=== PATIENT | male | born 1965 | race Caucasian/White ===

== ENCOUNTER 2020-04-21 11:11 | Day surgery (SDC) | payer SELFPAY ==
--- NOTE | ~2020-04-21 | XR_ITS ---
EXAMINATION: XR barium swallow DATE: 04/21/2020 11:56 INDICATION: Dysphagia. TECHNIQUE: The patient drank thick barium. Fluoroscopy of the esophagus was performed. Fluoroscopy ex posure time was 0.2 minutes. The total number of images was 4. The dose-area product was 1.326 Gy-cm^2 . COMPARISON: None. FINDINGS: There is total occlusion of the distal esophagus. No fluid could pass this area in the upri ght position. IMPRESSION: 1. Total occlusion of the distal esophagus, which may be food impaction given that the patient ate no rmal food yesterday. Malignancy may have the same appearance. I called this result to Smith Howe on 04/21/20 at 12:09 PM. Reviewed, dictated and finalized at location A. IMPRESSION: 1. Total occlusion of the distal esophagus, which may be food impaction given t hat the patient ate normal food yesterday. Malignancy may have the same appeara nce. I called this result to Smith Howe on 04/21/20 at 12:09 PM.
[2020-04-21 11:14] VITALS: BP 148/92; PULSE 79; RESP 16; TEMP 36.7; O2SAT 97
[2020-04-21 11:20] VITALS: PULSE 77
[2020-04-21 12:00] LABS: Basophils Percent Auto 0.4 % (0.2-1.2); Eosinophils Absolute Auto 0.1 K/mm3 (0-0.3); Eosinophils Percent Auto 0.9 % (0-4.4); Hematocrit 48.8 % (42.0-52.0); Hemoglobin 17.1 g/dL (14.0-18.0); Immature Granulocyte Absolute 0.02 K/mm3 (0.00-0.031); Immature Granulocyte Percent A 0.4 % (0-0.5); Lymphocytes Absolute Auto 1.39 K/mm3 (0.9-3.2); Lymphocytes Percent Auto 26.1 % (18.3-44.2); Mean Corpuscular Hemoglobin 31.3 pg (26-34); Mean Corpuscular Volume 89.2 fl (80-100); Mean Platelet Volume 9.1 fl (7.4-10.4); Monocytes Absolute Auto 0.4 K/mm3 (0.1-0.6); Monocytes Percent Auto 7.3 % (2.6-8.5); Neutrophils Absolute Auto 3.5 K/mm3 (1.3-6.7); Neutrophils Percent Auto 64.9 % (45.5-73.1); Platelet Count Result 311 k/mm3 (150-375); Red Blood Count 5.47 M/mm3 (4.6-6.20); Red Cell Distribution Width 12.9 % (11.5-14.5); White Blood Count 5.3 K/mm3 (4.5-10.0)
[2020-04-21 12:12] LABS: Alanine Aminotransferase 46 U/L (4-50); Albumin Level 4.8 g/dL (3.5-5.1); Alkaline Phosphatase 78 U/L (38-126); Aspartate Amino Transferase 36 U/L (17-59); Bilirubin,Total 0.8 mg/dL (0.2-1.3); Blood Urea Nitrogen 18 mg/dL (9-20); Calcium 9.3 mg/dL (8.4-10.2); Carbon Dioxide 24 mmol/L (22-30); Chloride 107 mmol/L (98-107); Estimated CRCL calculation 74 ml/min; Estimated Glomerular Filt Rate > 60; Glucose 95 mg/dL (75-110); Potassium 3.9 mmol/L (3.4-5.0); Sodium 143 mmol/L (137-145)
[2020-04-21] MEDS: PANTOPRAZOLE SODIUM IV 40 MG VIAL IV PUSH (12:25)
[2020-04-21] MEDS: SODIUM CHLORIDE 0.9% IV 1,000 ML 999 ML IV CONT (12:25)
[2020-04-21] MEDS: FAMOTIDINE 20 MG/2 ML VIAL IV PUSH (12:25)
--- NOTE | 2020-04-21 12:42 | ED.GENADULT ---
HPI - General Adult General Chief complaint: Unspecified Stated complaint: my esophagus is closed Time Seen by Provider: 04/21/20 11:16 Source: patient Mode of arrival: ambulatory Limitations: no limitations History of Present Illness HPI narrative: Patient is a 54-year-old male who presents to emergency department for evaluation of esophageal foreign body patient had eaten steak last night felt like there after he could not swallow did throw up body clear the esophageal foreign body. Patient with history of stricture requiring balloon dilation. Patient on arrival denies any pain notes that he is now having difficulty swallowing solids patient otherwise in the room in no distress Related Data Home Medications Medication Instructions Recorded Confirmed escitalopram oxalate mg DAILY 04/21/20 pilocarpine HCl See Rx Instructions .ROUTE .COMPLEX 04/21/20 Allergies Allergy/AdvReac Type Severity Reaction Status Date / Time ciprofloxacin [From Cipro] AdvReac Fatigued Verified 04/21/20 11:27 Sulfa (Sulfonamide AdvReac Headache Verified 04/21/20 11:26 Antibiotics) Review of Systems Review of Systems: All systems reviewed & are unremarkable except as noted in HPI and below PMFSH Past Medical History Medical History (Updated 04/21/20 @ 12:48 by Smith Howe PA-C) Gastroesophageal reflux disease Surgical History Surgical History (Updated 04/21/20 @ 12:45 by Smith Howe PA-C) History of esophagogastroduodenoscopy (EGD) Social History Social History (Updated 04/21/20 @ 12:45 by Smith Howe PA-C) Smoking status: Never smoker Gender identity (if verbalized by the patient): Male Exam Const: General: no acute distress and alert Orientation/consciousness: patient oriented x3 HENMT: Head: normal to inspection Eyes: Conjunctivae: conjunctivae normal Pupils: Equal, round and reactive pupils present Chest: Chest palpation & inspection: normal inspection of the chest and abnormal inspection of the chest Resp: Effort & Inspection: normal respiratory effort Auscultation: clear to auscultation bilaterally Cardio: Rate: regular rate Rhythm: regular rhythm GI: GI Palp: Yes Soft to palpation : Testes: Testes normal Skin: General skin exam: normal color Rashes: no rashes Neuro: General: patient oriented x3, moves all extremities and CN's II-XI intact bilaterally Extrem: General: normal to inspection Psych: Mental Status: mental status grossly normal Affect: normal affect Course Course Emergency Course: Patient in the room in no distress aware of case findings treatment plan and diagnosis Consultations Consultation #1: Discussed case with gastroenterology who will take the patient to GI lab for EGD Date: 04/21/20 Time: 12:47 Vital Signs Vital signs: Vital Signs Temperature 98.0 F 04/21/20 11:14 Pulse Rate 79 04/21/20 11:14 Respiratory Rate 16 04/21/20 11:14 Blood Pressure 148/92 H 04/21/20 11:14 Pulse Oximetry 97 04/21/20 11:14 Temperature 98.0 F 04/21/20 11:14 Pulse Rate 77 04/21/20 11:20 Respiratory Rate 16 04/21/20 11:14 Blood Pressure 148/92 H 04/21/20 11:14 Pulse Oximetry 97 04/21/20 11:14 Medical Decision Making MDM Narrative Medical decision making narrative: Patient aware of case findings treatment plan and diagnosis will go to the GI lab for EGD Vital Signs Vital Signs: Vital Signs Temperature 98.0 F 04/21/20 11:14 Pulse Rate 79 04/21/20 11:14 Respiratory Rate 16 04/21/20 11:14 Blood Pressure 148/92 H 04/21/20 11:14 Pulse Oximetry 97 04/21/20 11:14 Temperature 98.0 F 04/21/20 11:14 Pulse Rate 77 04/21/20 11:20 Respiratory Rate 16 04/21/20 11:14 Blood Pressure 148/92 H 04/21/20 11:14 Pulse Oximetry 97 04/21/20 11:14 Lab Data Result diagrams: 04/21/20 11:51 04/21/20 11:51 Labs: Lab Results 04/21/20 04/21/20 Range/Units 11:51 11:51 WBC 5.3
--- NOTE | 2020-04-21 13:01 | WPDANESEPPF ---
Anes - Initial Pre Proc Eval Procedure: Operation Date: 04/21/20 13:00 Proposed Procedures p Esophagogastroduodenoscopy - Carlos Guajardo MD Date/Time: 04/21/20 13:01 Surgeon: Carlos Guajardo MD Pre Op Diagnosis: FB GI Patient Data Age: 54 Gender: M Height: 1.75 m Weight: 82.6 kg Last Vital Signs Temp 36.7 C 04/21/20 11:14 Pulse 77 04/21/20 11:20 Resp 16 04/21/20 11:14 BP 148/92 H 04/21/20 11:14 Pulse Ox 97 04/21/20 11:14 Allergies Allergy/AdvReac Type Severity Reaction Status Date / Time ciprofloxacin [From Cipro] AdvReac Fatigued Verified 04/21/20 12:59 Sulfa (Sulfonamide AdvReac Headache Verified 04/21/20 12:59 Antibiotics) Home Medications Medication Instructions Recorded Confirmed Type escitalopram oxalate mg DAILY 04/21/20 History pilocarpine HCl See Rx Instructions .ROUTE .COMPLEX 04/21/20 History Laboratory Tests 04/21/20 04/21/20 11:51 11:51 WBC 5.3 K/mm3 K/mm3 (4.5-10.0) RBC 5.47 M/mm3 M/mm3 (4.6-6.20) Hgb 17.1 g/dL g/dL (14.0-18.0) Hct 48.8 % % (42.0-52.0) MCV 89.2 fl fl (80-100) MCH 31.3 pg pg (26-34) MCHC 35.0 g/dl g/dl (32-36) RDW 12.9 % % (11.5-14.5) Plt Count 311 k/mm3 k/mm3 (150-375) MPV 9.1 fl fl (7.4-10.4) Immature Gran % (Auto) 0.4 % % (0-0.5) Neut % (Auto) 64.9 % % (45.5-73.1) Lymph % (Auto) 26.1 % % (18.3-44.2) [place] % (Auto) 7.3 % % (2.6-8.5) Eos % (Auto) 0.9 % % (0-4.4) Baso % (Auto) 0.4 % % (0.2-1.2) Lymph # (Auto) 1.39 K/mm3 K/mm3 (0.9-3.2) [place] # (Auto) 0.4 K/mm3 K/mm3 (0.1-0.6) Eos # (Auto) 0.1 K/mm3 K/mm3 (0-0.3) Baso # (Auto) 0.0 K/mm3 K/mm3 (0.0-0.1) Abs Immat Gran (auto) 0.02 K/mm3 K/mm3 (0.00-0.031) Absolute Neuts (auto) 3.5 K/mm3 K/mm3 (1.3-6.7) Absolute Nucleated RBC 0.0 K/mm3 K/mm3 (0.0-0.012) Nucleated RBC % 0.0 % % (0.0-0.2) Sodium 143 mmol/L mmol/L (137-145) Potassium 3.9 mmol/L mmol/L (3.4-5.0) Chloride 107 mmol/L mmol/L (98-107) Carbon Dioxide 24 mmol/L mmol/L (22-30) BUN 18 mg/dL mg/dL (9-20) Creatinine 1.00 mg/dL mg/dL (0.7-1.3) Estim Creat Clear Calc 74 ml/min ml/min Estimated GFR > 60 (59 - ) Glucose 95 mg/dL mg/dL (75-110) Calcium 9.3 mg/dL mg/dL (8.4-10.2) Total Bilirubin 0.8 mg/dL mg/dL (0.2-1.3) AST 36 U/L U/L (17-59) ALT 46 U/L U/L (4-50) Alkaline Phosphatase 78 U/L U/L (38-126) Total Protein 8.0 g/dL g/dL (6.3-8.2) Albumin 4.8 g/dL g/dL (3.5-5.1) Patient hx anesthesia problems: none Family hx anesthesia problems: none PMFSH Past Medical History Medical History (Updated 04/21/20 @ 13:02 by Phani Hairston MD) Anxiety Depression Gastroesophageal reflux disease Overweight (BMI 25.0-29.9) Surgical History Surgical History (Updated 04/21/20 @ 12:45 by Smith Howe PA-C) History of esophagogastroduodenoscopy (EGD) Social History Social History (Updated 04/21/20 @ 12:45 by Smith Howe PA-C) Smoking status: Never smoker Gender identity (if verbalized by the patient): Male Anes - Eval Final PreProcedure Day of Procedure 04/21/20 13:01 Patient weight: overweight Heart: regular rate and rhythm Lungs: clear to auscultation and normal air movement Airway: Mallampati scale class II Neurological: alert and oriented Last oral intake: >/= 8 hours ASA classification: II Emergent: no Anesthetic plan: proceed Anesthesia type and monitoring: general GIVS and ETT Informed Consent: The patient's anesthetic plan and its attendant risks and benefits were discussed with the patient/family/POA. Questions were solicited and answers provided to the satisfaction of the patient/family/POA.
[2020-04-21 13:04] VITALS: BP 136/89; PULSE 68; RESP 16; TEMP 36.8; O2SAT 96
[2020-04-21] MEDS: LACTATED RINGERS 1,000 ML 150 ML IV CONT (13:09)
[2020-04-21 13:33] VITALS: BP 127/77; PULSE 74; RESP 24; O2SAT 95
[2020-04-21 13:43] VITALS: BP 114/78; PULSE 67; RESP 23; O2SAT 94
--- NOTE | 2020-04-21 13:44 | WPDGICN ---
Assessment and Plan Assessment and plan (1) Esophageal foreign body: Qualifiers: Encounter type: initial encounter Qualified Code(s): T18.108A - Unspecified foreign body in esophagus causing other injury, initial encounter Code(s): T18.108A - Unspecified foreign body in esophagus causing other injury, initial encounter Status: Acute Assessment and Plan: will proceed with urgent EGD, more recommendations after scope (2) Depression: Code(s): F32.9 - Major depressive disorder, single episode, unspecified Status: Acute GI Consult Note Consult date/time: 04/21/20 13:44 Reason for consult: dysphagia HPI: Alejo Berry is a 54 year old male with previous esophageal dilation about 2 years ago here with difficulty swallowing after yesterday had for dinner steak. He came to ER and barium esophagram was ordered that showed total occlusion of distal esophagus. He denies using nsaid's, blood thinners. He denies GERD symptoms and is not using ppi. Review of Systems Constitutional: Constitutional: Denies headache(s) and Denies weakness Eyes: Eyes: Denies blurry vision ENT: Reports Normal hearing present, Denies headache(s) and Denies neck pain Cardiovascular: Cardiovascular: Denies chest pain and Denies dyspnea Respiratory: Respiratory: Denies dyspnea Gastrointestinal: Gastrointestinal: Reports no additional gastrointestinal complaints Genitourinary: Genitourinary: Denies dysuria Musculoskeletal: Musculoskeletal: Denies neck pain Integumentary/Breasts: Skin/Breast: Denies dry skin Neurologic: Reports Normal hearing present, Denies headache(s) and Denies weakness Psychiatric: Psychiatric: Denies anxiety Endocrine: Endocrine: Denies change in body appearance Hematologic/Lymphatic: Hematologic/Lymphatic: Denies easy bleeding Allergic/Immunologic: Allergic/Immunologic: Denies urticaria PMFSH Past Medical History Medical History (Updated 04/21/20 @ 13:46 by Carlos Guajardo MD) Anxiety Depression Gastroesophageal reflux disease Overweight (BMI 25.0-29.9) Surgical History Surgical History (Updated 04/21/20 @ 12:45 by Smith Howe PA-C) History of esophagogastroduodenoscopy (EGD) Social History Social History (Updated 04/21/20 @ 12:45 by Smith Howe PA-C) Smoking status: Never smoker Gender identity (if verbalized by the patient): Male Meds Home Medications and Allergies Home Medications Medication Instructions Recorded Confirmed Type escitalopram oxalate mg DAILY 04/21/20 History pilocarpine HCl See Rx Instructions .ROUTE .COMPLEX 04/21/20 History Allergies Allergy/AdvReac Type Severity Reaction Status Date / Time ciprofloxacin [From Cipro] AdvReac Fatigued Verified 04/21/20 12:59 Sulfa (Sulfonamide AdvReac Headache Verified 04/21/20 12:59 Antibiotics) Vital Signs Vital Signs - 24 hr 04/21/20 11:14 04/21/20 11:20 04/21/20 13:04 Temperature 98.0 F 98.3 F Pulse Rate 79 77 68 Respiratory Rate 16 16 Blood Pressure 148/92 H 136/89 Pulse Oximetry 97 96 04/21/20 13:33 04/21/20 13:43 Temperature Pulse Rate 74 67 Respiratory Rate 24 H 23 H Blood Pressure 127/77 114/78 Pulse Oximetry 95 94 Exam Const: General: comfortable and no acute distress HENMT: General nose exam: Normal nares present Eyes: General: appearance normal, both eyes and all related structures Neck: Neck: no JVD Resp: Auscultation: clear to auscultation bilaterally Cardio: Rate: regular rate Rhythm: regular rhythm GI: Inspection: non-distended GI Palp: Yes Soft to palpation Skin: General skin exam: normal color Neuro: General: gait normal Speech: normal speech Extrem: General: normal to inspection Psych: Mental Status: mental status grossly normal Results Labs CBC & Chem 7: 04/21/20 11:51 04/21/20 11:51 Labs: Short CBC 04/21/20 Range/Units 11:51 WBC 5.3 (4.
[2020-04-21 13:53] VITALS: BP 111/72; PULSE 59; RESP 22; O2SAT 96
== END 2020-04-21 14:09 | disposition home or self-care (01) ==
LOC: ANHED 11:41 → ANHSURGERY 12:44
PROVIDERS: Emergency Medicine Emergency Medical Services; Emergency Provider Emergency Medicine; PCP Internal Medicine; Visit Provider Internal Medicine Gastroenterology
PROC: 0DJ08ZZ Inspection of Upper Intestinal Tract, Via Natural or Artificial Opening Endoscopic (ICD-10-PCS; CPT 43235; principal; 2020-04-21 13:00)
DX: R13.10 Dysphagia, unspecified (principal); T18.128A Food in esophagus causing other injury, initial encounter; K22.2 Esophageal obstruction; K44.9 Diaphragmatic hernia without obstruction or gangrene; K21.9 Gastro-esophageal reflux disease without esophagitis; F41.8 Other specified anxiety disorders
CPT/HCPCS: 43235; 36415; 74220; 80053; 85025; 96361; 96374; 96375; 99285; C9113; J2704; J7030; J7120

== ENCOUNTER 2023-02-27 10:28 | Day surgery (SDC) | payer SELFPAY ==
[2023-02-27 10:42] VITALS: BP 142/90; PULSE 82; RESP 18; TEMP 36.6; O2SAT 99
--- NOTE | 2023-02-27 11:24 | PC.NURSE ---
Patient states he has had food bolus in the past and has had to have a scope done to remove it. Patient denies SOB at this time, but states he is having trouble swallowing.
--- NOTE | 2023-02-27 12:03 | ED.SKABFB ---
HPI - Skin/Abscess/Foreign Bdy General Chief complaint: Skin/Abscess/Foreign Body Stated complaint: my esophagus in closing up Time Seen by Provider: 02/27/23 11:59 History of Present Illness HPI narrative: 57-year-old male here with a food bolus sensation over the past day. Patient states that last night while he was eating dinner he felt part of his turkey get stuck in his esophagus. Since then, he has been able to swallow his secretions but he has had difficulty with liquids. He has attempted drinking and eating pieces of bread without relief of his sensation. He has a history of food bolus and has had an EGD in the past. Related Data Allergies Allergy/AdvReac Type Severity Reaction Status Date / Time ciprofloxacin [From Cipro] AdvReac Fatigued Verified 02/27/23 13:40 Sulfa (Sulfonamide AdvReac Headache Verified 02/27/23 13:40 Antibiotics) Review of Systems Review of Systems: Gen.: Denies fevers or chills Eyes: Denies eye pain or visual change ENT: Denies congestion Respiratory: Denies shortness of breath or cough CV: Denies chest pain or palpitations GI: Denies abdominal pain nausea, emesis or diarrhea reports food bolus sensation Musculoskeletal: Denies back pain or muscle pain Neuro: Denies numbness, tingling, weakness or focal weakness Skin: Denies rash Except as documented, all other systems reviewed and negative PMFSH Past Medical History Medical History Acute sinusitis Anxiety Bronchitis Depression Gastroesophageal reflux disease Overweight (BMI 25.0-29.9) Surgical History Surgical History History of esophagogastroduodenoscopy (EGD) Social History Social History (Updated 04/21/20 @ 12:45 by Smith Howe, ELDA) Smoking status: Never smoker Gender identity (if verbalized by the patient): Male Exam Narrative: APPEARANCE: Well appearing, no pain in distress, well-nourished. Head: Normocephalic and atraumatic. EYES: PERRLA/EOMI, conjunctivae clear NOSE: No nasal drainage EARS: External ear normal in appearance THROAT: Oropharynx is clear. Mucous membranes are moist. NECK: Supple. No adenopathy, no masses. RESPIRATORY: Airway patent, respirations nonlabored. Clear to auscultation bilaterally, no rales, rhonchi, wheezing. CARDIOVASCULAR: Regular rate and rhythm without murmurs, rubs, or gallops. ABDOMINAL: Normoactive bowel sounds. Soft, nontender, nondistended. No rebound tenderness or guarding. MUSCULOSKELETAL: Extremities are warm and well-perfused. Moves all extremities well. No edema. NEURO: Normal speech. No focal neurologic deficits. SKIN: Skin is warm and dry. No rashes. PSYCHIATRIC: Normal affect/mood.. Course Vital Signs Vital signs: Vital Signs Temperature 97.9 F 02/27/23 10:42 Pulse Rate 82 02/27/23 10:42 Respiratory Rate 18 02/27/23 10:42 Blood Pressure 142/90 H 02/27/23 10:42 Pulse Oximetry 99 02/27/23 10:42 Oxygen Delivery Room Air 02/27/23 10:42 Temperature 97.4 F L 02/27/23 13:44 Pulse Rate 68 02/27/23 15:41 Respiratory Rate 18 02/27/23 15:41 Blood Pressure 109/69 02/27/23 15:41 Pulse Oximetry 99 02/27/23 15:41 Oxygen Delivery Room Air 02/27/23 15:41 MDM - Skin/Abscess/Foreign Bdy MDM Narrative Medical decision making narrative: 57-year-old male with a history of food bolus here due to concerns of recurrence, inability to swallow liquids and food over the past day after eating steak last night. Patient is nontoxic in appearance and he has normal vital signs. Spoke with Dr. ePrez from GI who agrees to scope the patient today. Patient was taken to the GI lab promptly; he is agreeable with this plan. Lab Data 02/27/23 12:43 02/27/23 12:43 Labs: Lab Results 02/27/23 02/27/23 02/27/23 Range/Units 12:43 12:43 12:43 WBC 8.6 (4.5-10.0) K/mm3 RBC 5.
[2023-02-27] MEDS: SODIUM CHLORIDE 0.9% IV 1,000 ML 999 ML IV CONT (12:41)
[2023-02-27 12:48] LABS: Basophils Percent Auto 0.2 % (0.2-1.2); Eosinophils Percent Auto 0.5 % (0-4.4); Hematocrit 49.5 % (42.0-52.0); Hemoglobin 16.8 g/dL (14.0-18.0); Immature Granulocyte Absolute 0.02 K/mm3 (0.00-0.031); Immature Granulocyte Percent A 0.2 % (0-0.5); Lymphocytes Absolute Auto 1.44 K/mm3 (0.9-3.2); Lymphocytes Percent Auto 16.7 % (18.3-44.2); Mean Corpuscular HGB Conc 33.9 g/dl (32-36); Mean Corpuscular Hemoglobin 30.8 pg (26-34); Mean Corpuscular Volume 90.8 fl (80-100); Mean Platelet Volume 8.7 fl (7.4-10.4); Monocytes Absolute Auto 0.7 K/mm3 (0.1-0.6); Monocytes Percent Auto 7.5 % (2.6-8.5); Neutrophils Absolute Auto 6.4 K/mm3 (1.3-6.7); Neutrophils Percent Auto 74.9 % (45.5-73.1); Platelet Count Result 293 k/mm3 (150-375); Red Blood Count 5.45 M/mm3 (4.6-6.20); Red Cell Distribution Width 12.9 % (11.5-14.5); White Blood Count 8.6 K/mm3 (4.5-10.0)
[2023-02-27 12:59] LABS: Alanine Aminotransferase 38 U/L (6-50); Albumin Level 4.9 g/dL (3.5-5.1); Alkaline Phosphatase 82 U/L (38-126); Anion Gap 9 mmol/L (8-16); Aspartate Amino Transferase 27 U/L (17-59); Blood Urea Nitrogen 14 mg/dL (9-20); Calcium 9.2 mg/dL (8.4-10.2); Carbon Dioxide 28 mmol/L (22-30); Chloride 104 mmol/L (98-107); Estimated CRCL calculation 88 ml/min; Estimated Glomerular Filt Rate > 60; Glucose 98 mg/dL (65-110); Potassium 3.8 mmol/L (3.4-5.0); Sodium 141 mmol/L (137-145)
--- NOTE | 2023-02-27 13:01 | PC.NURSE ---
Spoke with Maame from GI lab and she states they will be down to get patient in about 30 minutes
[2023-02-27 13:03] LABS: Partial Thromboplastin Time 29.8 SECONDS (22.3-36.8); Prothrombin Time 12.9 Seconds (11.1-14.7)
[2023-02-27] MEDS: LACTATED RINGERS 1,000 ML 150 ML IV CONT (13:43)
[2023-02-27 13:44] VITALS: BP 136/87; PULSE 72; RESP 20; TEMP 36.3; O2SAT 99
--- NOTE | 2023-02-27 13:44 | WPDANESEPPF ---
Anes - Initial Pre Proc Eval Procedure: Operation Date: 02/27/23 15:45 Proposed Procedures p Esophagogastroduodenoscopy - Talha Perez MD Date/Time: 02/27/23 13:44 Surgeon: Talha Perez MD Pre Op Diagnosis: my esophagus in closing up Patient Data Age: 57 Gender: M Height: 1.75 m Weight: 81.8 kg Last Vital Signs Temp 97.9 F 02/27/23 10:42 Pulse 82 02/27/23 10:42 Resp 18 02/27/23 10:42 BP 142/90 H 02/27/23 10:42 Pulse Ox 99 02/27/23 10:42 O2 Del Method Room Air 02/27/23 10:42 Allergies Allergy/AdvReac Type Severity Reaction Status Date / Time ciprofloxacin [From Cipro] AdvReac Fatigued Verified 02/27/23 13:40 Sulfa (Sulfonamide AdvReac Headache Verified 02/27/23 13:40 Antibiotics) Laboratory Tests 02/27/23 02/27/23 02/27/23 12:43 12:43 12:43 WBC 8.6 K/mm3 K/mm3 (4.5-10.0) RBC 5.45 M/mm3 M/mm3 (4.6-6.20) Hgb 16.8 g/dL g/dL (14.0-18.0) Hct 49.5 % % (42.0-52.0) MCV 90.8 fl fl (80-100) MCH 30.8 pg pg (26-34) MCHC 33.9 g/dl g/dl (32-36) RDW 12.9 % % (11.5-14.5) Plt Count 293 k/mm3 k/mm3 (150-375) MPV 8.7 fl fl (7.4-10.4) Immature Gran % (Auto) 0.2 % % (0-0.5) Neut % (Auto) 74.9 % H % (45.5-73.1) Lymph % (Auto) 16.7 % L % (18.3-44.2) [place] % (Auto) 7.5 % % (2.6-8.5) Eos % (Auto) 0.5 % % (0-4.4) Baso % (Auto) 0.2 % % (0.2-1.2) Lymph # (Auto) 1.44 K/mm3 K/mm3 (0.9-3.2) [place] # (Auto) 0.7 K/mm3 H K/mm3 (0.1-0.6) Eos # (Auto) 0.0 K/mm3 K/mm3 (0-0.3) Baso # (Auto) 0.0 K/mm3 K/mm3 (0.0-0.1) Abs Immat Gran (auto) 0.02 K/mm3 K/mm3 (0.00-0.031) Absolute Neuts (auto) 6.4 K/mm3 K/mm3 (1.3-6.7) Absolute Nucleated RBC 0.0 K/mm3 K/mm3 (0.0-0.012) Nucleated RBC % 0.0 % % (0.0-0.2) PT 12.9 Seconds Seconds (11.1-14.7) INR 1.0 APTT 29.8 SECONDS SECONDS (22.3-36.8) Sodium 141 mmol/L mmol/L (137-145) Potassium 3.8 mmol/L mmol/L (3.4-5.0) Chloride 104 mmol/L mmol/L (98-107) Carbon Dioxide 28 mmol/L mmol/L (22-30) Anion Gap 9 mmol/L mmol/L (8-16) BUN 14 mg/dL mg/dL (9-20) Creatinine 0.80 mg/dL mg/dL (0.7-1.3) Estim Creat Clear Calc 88 ml/min ml/min Estimated GFR > 60 (59 - ) Glucose 98 mg/dL mg/dL (65-110) Calcium 9.2 mg/dL mg/dL (8.4-10.2) Total Bilirubin 1.0 mg/dL mg/dL (0.2-1.3) AST 27 U/L U/L (17-59) ALT 38 U/L U/L (6-50) Alkaline Phosphatase 82 U/L U/L (38-126) Total Protein 8.0 g/dL g/dL (6.3-8.2) Albumin 4.9 g/dL g/dL (3.5-5.1) Patient hx anesthesia problems: none Family hx anesthesia problems: none Results Review: All pre-operative results and documents have been reviewed as part of the pre-operative evaluation. [facility] Past Medical History Medical History Acute sinusitis Anxiety Bronchitis Depression Gastroesophageal reflux disease Overweight (BMI 25.0-29.9) Surgical History Surgical History History of esophagogastroduodenoscopy (EGD) Social History Social History (Updated 04/21/20 @ 12:45 by Smith Howe, ELDA) Smoking status: Never smoker Gender identity (if verbalized by the patient): Male Anes - Eval Final PreProcedure Day of Procedure 02/27/23 13:44 Patient weight: normal Heart: regular rate and rhythm Lungs: clear to auscultation Airway: Mallampati scale class II Neurological: alert and oriented Last oral intake: >/= 8 hours ASA classification: II Emergent: yes Anesthetic plan: proceed Anesthesia type
[2023-02-27] MEDS: BENZOCAINE (*SP) 60 ML SPRAY CAN (HURRICAINE) 1 SPRAY MUCOUS MEM (14:54)
--- NOTE | 2023-02-27 15:06 | PM.HPGS ---
History of Present Illness History of Present Illness Consent: Risks, benefits, and alternatives have been discussed and questions answered. Patient agrees to proceed with procedure. Chief complaint: my esophagus in closing up Narrative: Alejo Berry is a 57 year old male I am asked to see at the request of the emergency room because of food impaction. Patient states last evening he was eating meat including chicken and steak. He subsequently was unable to eat or swallow. He awoke this morning and continued to be unable to eat or swallow. For this reason presented to the emergency room. I have been consulted with apparent food impaction. Patient has had difficulty swallowing intermittently over the last several years. In 2019 had an EGD because of a food impaction. Patient denies any heartburn. He has had no weight loss. But he does occasionally have difficulty with solid foods. Review of Systems Review of Systems: Review of systems noncontributory. COUNT INCLUDES THE [facility] Past Medical History Medical History Acute sinusitis Anxiety Bronchitis Depression Gastroesophageal reflux disease Overweight (BMI 25.0-29.9) Surgical History Surgical History History of esophagogastroduodenoscopy (EGD) Social History Social History (Updated 04/21/20 @ 12:45 by Smith Howe, ELDA) Smoking status: Never smoker Gender identity (if verbalized by the patient): Male Meds Home Medications and Allergies Allergies Allergy/AdvReac Type Severity Reaction Status Date / Time ciprofloxacin [From Cipro] AdvReac Fatigued Verified 02/27/23 13:40 Sulfa (Sulfonamide AdvReac Headache Verified 02/27/23 13:40 Antibiotics) Vital Signs Vital Signs - 24 hr 02/27/23 10:42 02/27/23 13:44 Temperature 97.9 F 97.4 F L Pulse Rate 82 72 Respiratory Rate 18 20 Blood Pressure 142/90 H 136/87 Pulse Oximetry 99 99 Oxygen Delivery Room Air Room Air Exam Narrative: Physical exam reveals patient to be alert. Vital signs stable. HEENT exam is unremarkable. Patient is anicteric. Lungs are clear to auscultation and percussion. Heart is without murmur or extra sounds. Abdomen bowel sounds are present soft nontender with no organomegaly. Assessment and Plan Assessment and plan (1) Food impaction of esophagus: Code(s): T18.128A - Food in esophagus causing other injury, initial encounter Status: Acute Assessment and Plan: Patient with a food impaction of the esophagus he is known to have esophageal stricture by previous endoscopy 2019. EGD will be performed further recommendations after endoscopy.
[2023-02-27 15:11] VITALS: BP 98/56; PULSE 87; RESP 22; O2SAT 92
[2023-02-27 15:21] VITALS: BP 81/48; PULSE 74; RESP 20; O2SAT 95
[2023-02-27 15:31] VITALS: BP 78/48; PULSE 63; RESP 21; O2SAT 99
[2023-02-27 15:41] VITALS: BP 109/69; PULSE 68; RESP 18; O2SAT 99
== END 2023-02-27 15:50 | disposition home or self-care (01) ==
LOC: ANHED 13:12 → ANHENDO 13:37
PROVIDERS: Emergency Provider Physician Assistant; PCP Internal Medicine; Visit Provider Internal Medicine Gastroenterology
PROC: 0DJ08ZZ Inspection of Upper Intestinal Tract, Via Natural or Artificial Opening Endoscopic (ICD-10-PCS; CPT 43235; principal; 2023-02-27 15:45)
DX: K22.2 Esophageal obstruction (principal); K44.9 Diaphragmatic hernia without obstruction or gangrene
CPT/HCPCS: 43249; 36415; 80053; 85025; 85610; 85730; 99285; C1726; J7030; J7120